=== PATIENT | female | born 1960 | race Caucasian/White ===

== ENCOUNTER 2018-05-23 17:43 | Emergency (ER) | payer OTHER ==
[2018-05-23] MEDS: HYDROCODONE/APAP (5/325) TAB PO (19:28)
== END 2018-05-23 20:07 | disposition home or self-care (01) ==
LOC: FTE 17:43
DX: M25.511 Pain in right shoulder (principal); I10 Essential (primary) hypertension; E11.9 Type 2 diabetes mellitus without complications
CPT/HCPCS: 99283; Z7502